=== PATIENT | female | born 1975 | race Caucasian/White ===

== ENCOUNTER 2018-06-05 14:42 | Emergency (ER) | payer OTHER ==
[2018-06-05 14:58] VITALS: BMI 23.2
[2018-06-05] MEDS ORDERED: Oxycodone/Acetaminophen 5/325 mg Tab PO STA (15:34)
--- NOTE | 2018-06-05 15:43 | C.PDOC ---
History Of Present Illness 42 y/o female presents to ED c/o exacerbation of chronic low back pain for the past week. Pt also reports paresthesia to TIPS right fingers since yesterday. Notes she has history of rheumatoid arthritis and feels the symptoms are related to flare up. She is on Flexeril, Plaquenil, and Tramadol. Pt has had multiple prior visits for similar symptoms. Denies trauma, abdominal pain, n/v/d , incontinence, or fever. Time Seen by Provider: 06/05/18 15:16 Chief Complaint (Nursing): Back Pain History Per: Patient History/Exam Limitations: no limitations Onset/Duration Of Symptoms: Days Current Symptoms Are (Timing): Still Present Quality Of Discomfort: "Pain" Previous Symptoms: Chronic Pain Associated Symptoms: None. denies: Incontinence Exacerbating Factor(s): Nothing Recent travel outside of the [place]: No Additional History Per: Patient Past Medical History Reviewed: Historical Data, Nursing Documentation, Vital Signs Vital Signs: Last Vital Signs Temp 97.7 F 06/05/18 14:58 Pulse 62 06/05/18 14:58 Resp 18 06/05/18 14:58 BP 145/69 06/05/18 14:58 Pulse Ox 99 06/05/18 15:48 - Medical History PMH: Rheumatoid Arthritis - [facility] Procedures ASPIRAT CURET-POST DELIV (04/13/13) Family History: States: Unknown Family Hx - Social History Hx Tobacco Use: No Hx Alcohol Use: No Hx Substance Use: No - Immunization History Hx Tetanus Toxoid Vaccination: Yes Hx Influenza Vaccination: Yes Hx Pneumococcal Vaccination: Yes Review Of Systems Except As Marked, All Systems Reviewed And Found Negative. Constitutional: Negative for: Fever, Chills Gastrointestinal: Negative for: Nausea, Vomiting, Abdominal Pain Genitourinary: Negative for: Dysuria, Frequency, Incontinence, Hematuria Musculoskeletal: Positive for: Back Pain Neurological: Positive for: Numbness (paresthesia to right fingers). Negative for: Headache, Dizziness Physical Exam - Physical Exam Appears: Non-toxic, No Acute Distress Skin: Normal Color, Warm, Dry Head: Atraumatic, Normacephalic Eye(s): bilateral: Normal Inspection Oral Mucosa: Moist Neck: Supple Cardiovascular: Rhythm Regular Respiratory: Normal Breath Sounds, No Rales, No Rhonchi, No Wheezing Gastrointestinal/Abdominal: Soft, No Tenderness Back: No CVA Tenderness, No Vertebral Tenderness, Decreased ROM (limited full extension secondary to pain), No Paraspinal Tenderness Extremity: Normal ROM, No Deformity Extremity: Bilateral: Atraumatic Neurological/Psych: Oriented x3, Normal Speech ED Course And Treatment O2 Sat by Pulse Oximetry: 99 (RA) Pulse Ox Interpretation: Normal Reevaluation Time: 16:26 Reassessment Condition: Improved Medical Decision Making Medical Decision Making: Plan: Motrin Percocet Prednisone Reassess Disposition Counseled Patient/Family Regarding: Studies Performed, Diagnosis, Need For Followup, Rx Given - Disposition Referrals: [facility] [Outside] [facility] [Outside] Disposition: HOME/ ROUTINE Disposition Time: 16:26 Condition: IMPROVED Prescriptions: oxyCODONE/Acetaminophen [Percocet 5/325 mg Tab] 1 ea PO QID #8 tab predniSONE [Prednisone] 60 mg PO DAILY #12 tab Instructions: Rheumatoid Arthritis (DC) Forms: [employer] ([place]uan) - Clinical Impression Clinical Impression: Back pain, Rheumatoid arthritis flare, Paresthesia - Scribe Statement The provider has reviewed the documentation as recorded by the Scribe KP All medical record entries made by the Scribe were at my direction and personally dictated by me. I have reviewed the chart and agree that the record accurately reflects my personal performance of the history, physical exam, medical decision making, and the department course for this patient. I have also personally directed, reviewed, and agree with the discharge instructions and disposition.
[2018-06-05] MEDS ORDERED: Oxycodone/Acetaminophen 5/325 mg Tab ONE (16:14)
[2018-06-05 16:43] VITALS: BP 135/78; PULSE 68; RESP 16; TEMP 98.2; O2SAT 98
== END 2018-06-05 16:41 | disposition home or self-care (01) ==
LOC: C.ER 14:42
DX: M54.5 Low back pain (principal); R20.2 Paresthesia of skin; M06.9 Rheumatoid arthritis, unspecified

== ENCOUNTER 2018-06-21 21:02 | Emergency (ER) | payer OTHER ==
[2018-06-21 21:02] VITALS: BMI 23.2
[2018-06-21 21:18] VITALS: BP 115/76; PULSE 77; TEMP 98.1; O2SAT 100
[2018-06-21] MEDS ORDERED: Oxymetazoline 0.05% Nasal Spray (30 ml) NS STA (21:25)
--- NOTE | 2018-06-21 21:27 | C.PDOC ---
History Of Present Illness 42 y/o female presents to ED with c/o nose pain after accidentally tripping and hitting nose with cart while at [employer] earlier today. Patient states she has been having intermittent nose bleeds since this afternoon. Patient denies loc, headache, vomiting, lightheadedness or weakness. Time Seen by Provider: 06/21/18 21:21 Chief Complaint (Nursing): ENT Problem History Per: Patient History/Exam Limitations: None Onset/Duration Of Symptoms: Hrs Current Symptoms Are (Timing): Still Present Past Medical History Reviewed: Historical Data, Nursing Documentation, Vital Signs Vital Signs: Last Vital Signs Temp 98.1 F 06/21/18 21:16 Pulse 77 06/21/18 21:16 Resp 16 06/21/18 21:16 BP 115/76 06/21/18 21:16 Pulse Ox 100 06/21/18 21:44 - Medical History PMH: Rheumatoid Arthritis Surgical History: - [facility] Procedures ASPIRAT CURET-POST DELIV (04/13/13) Family History: States: No Known Family Hx - Social History Hx Tobacco Use: No Hx Alcohol Use: No Hx Substance Use: No - Immunization History Hx Tetanus Toxoid Vaccination: Yes Hx Influenza Vaccination: Yes Hx Pneumococcal Vaccination: Yes Review Of Systems Constitutional: Negative for: Fever, Chills ENT: Positive for: Nose Pain, Nose Discharge Cardiovascular: Negative for: Light Headedness Gastrointestinal: Negative for: Vomiting Skin: Negative for: Rash Neurological: Negative for: Weakness, Numbness, Headache Physical Exam - Physical Exam Appears: Non-toxic, No Acute Distress Skin: Warm, Dry, No Rash Head: Atraumatic, Normacephalic Eye(s): bilateral: Normal Inspection Nose: No Discharge, No Epistaxis, No Deformity, Tenderness (to nose bridge), No Septal Hematoma, Other (dried blood to left nare) Oral Mucosa: Moist Throat: No Erythema, No Exudate Neck: Supple Chest: Symmetrical Extremity: Bilateral: Normal ROM Neurological/Psych: Oriented x3, Normal Speech, Normal Motor, Normal Sensation Gait: Steady ED Course And Treatment O2 Sat by Pulse Oximetry: 100 (RA) Pulse Ox Interpretation: Normal Medical Decision Making Medical Decision Making: Impression: nose injury Plan: * nasal bones xray * Afrin nasal spray Progress: Xray shows no acute fracture Patient has no active nosebleed. Advised on care and to take analgesics. Can follow up with ENT Disposition Counseled Patient/Family Regarding: Diagnosis, Need For Followup - Disposition Referrals: Jone Millan MD [Staff Provider] - Disposition: HOME/ ROUTINE Disposition Time: 22:00 Condition: STABLE Additional Instructions: Please apply ice to area 15 minutes three times a day Use nasal spray once daily for Only 3 days Tylenol or Motrin for any pain Follow up with ENT Instructions: Contusion (DC) Forms: [employer] ([place]uan) - POA Present On Arrival: None - Clinical Impression Clinical Impression: Contusion, nose - PA / SURVEILLANCE [employer]OR OFFICER / Resident Statement MD/DO has reviewed & agrees with the documentation as recorded. - Scribe Statement The provider has reviewed the documentation as recorded by the Chayoibrell Garcia All medical record entries made by the Chayoibrell were at my direction and personally dictated by me. I have reviewed the chart and agree that the record accurately reflects my personal performance of the history, physical exam, medical decision making, and the department course for this patient. I have also personally directed, reviewed, and agree with the discharge instructions and disposition.
[2018-06-21] MEDS ORDERED: Oxymetazoline 0.05% Nasal Spray (30 ml) NS ONE (21:34)
[2018-06-21 22:18] VITALS: RESP 20
--- NOTE | 2018-06-22 09:06 | RAD ---
Date of service: 06/21/2018 PROCEDURE: Radiographs of Nasal Bones HISTORY: injury COMPARISON: None available. TECHNIQUE: Frontal and lateral radiographs of the nasal bones. FINDINGS: No fracture of nasal bones visualized. No destructive lesion. IMPRESSION: No nasal bone fracture visualized.
== END 2018-06-21 22:17 | disposition home or self-care (01) ==
LOC: C.ER 21:02
DX: S00.33XA Contusion of nose, initial encounter (principal); W01.198A Fall on same level from slipping, tripping and stumbling with subsequent striking against other object, initial encounter